=== PATIENT | female | born 1990 | race Two or more races ===

== ENCOUNTER → 2020-03-22 | Day surgery (SDC) | payer OTHER | END | disposition home or self-care (01) | LOC: CIR.AMB 08:16 | PROVIDERS: ATTEND Obstetrics & Gynecology | DX: O02.1 Missed abortion (principal) ==

== ENCOUNTER → 2023-12-19 | Emergency (ER) | payer OTHER | END | disposition left against medical advice (07) | LOC: ER 12:17 | DX: Z53.21 Procedure and treatment not carried out due to patient leaving prior to being seen by health care provider (principal) ==